=== PATIENT | male | born 1965 | race Caucasian/White ===

== ENCOUNTER 2020-03-10 05:14 | Emergency (ER) | payer OTHER ==
[~2020-03-10] VITALS: Ht 185.4 cm; Wt 72.6 kg
[2020-03-10] MEDS ORDERED: LIPITOR 20 MG T20 M1 PO (05:21)
[2020-03-10] MEDS ORDERED: CIPRO500 M1 PO (05:22)
[2020-03-10] MEDS ORDERED: GABAPENTIN100 MG PO (05:22)
[2020-03-10 05:51] LABS: URINE BILIRUBIN NEGATIVE (Negative); URINE BLOOD NEGATIVE (Negative); URINE CLARITY CLEAR; URINE COLOR YELLOW; URINE GLUCOSE-RANDOM* NEGATIVE (Negative); URINE KETONES NEGATIVE (Negative); URINE NITRITE-REFLEX NEGATIVE (Negative); URINE PROTEIN (DIPSTICK) NEGATIVE (Negative); URINE SPECIFIC GRAVITY <= 1.005 (1.005-1.035); URINE UROBILINOGEN 0.2 E.U./dl (0.2-1.0)
[2020-03-10 06:01] LABS: URINE LEUKOCYTES-REFLEX 1+ (Negative)
[2020-03-10 06:02] LABS: ABSOLUTE NEUTROPHILS 3.8 thou/uL (1.4-8.2); EOSINOPHILS 17.4 % (0.0-3.0); HEMOGLOBIN 12.8 gm/dL (14.0-18.0); LYMPHOCYTES 26.2 % (24.0-44.0); MCH 31.6 pg (26.0-34.0); MCHC 33.8 g/dL (28.0-37.0); MCV 93.6 fL (80.0-100.0); MONOCYTES 6.6 % (1.0-8.0); PLATELET COUNT 320 thou/uL (150-400); POLYS 48.8 % (36.0-66.0); RBC 4.06 mil/uL (4.50-6.00); RDW 13.9 % (10.5-14.5); WBC 7.8 thou/uL (4.0-11.0)
[2020-03-10 06:57] LABS: SQUAMOUS 0-3 Few /LPF (0-3)
[2020-03-10 07:00] LABS: BACTERIA-REFLEX None Seen /HPF (None Seen); CASTS None Seen /LPF (None Seen); CRYSTALS None Seen /LPF (None Seen); URINE RBC None Seen /HPF (0-2); URINE WBC-REFLEX 0-5 Rare /HPF (0-5)
[2020-03-10 07:07] LABS: CALCIUM 8.7 mg/dL (8.5-10.1); POTASSIUM 3.8 mmol/L (3.5-5.1)
[2020-03-10 07:13] LABS: ALBUMIN 3.5 g/dL (3.4-5.0); TOTAL BILIRUBIN 0.2 mg/dL (0.2-1.0); TOTAL PROTEIN 7.3 g/dL (6.4-8.2)
[2020-03-10 07:30] VITALS: BP 103/68
== END 2020-03-10 07:32 | disposition home or self-care (01) ==
LOC: ER 05:14
PROVIDERS: Student in an Organized Health Care Education/Training Program
DX: N39.0 Urinary tract infection, site not specified (principal); M54.6 Pain in thoracic spine; E78.00 Pure hypercholesterolemia, unspecified; F12.90 Cannabis use, unspecified, uncomplicated; Z88.2 Allergy status to sulfonamides; Z79.899 Other long term (current) drug therapy

== ENCOUNTER → 2020-03-20 | Outpatient (CLI) | payer OTHER ==
[~2020-03-20] MED LIST: CIPRO500 M1 PO; GABAPENTIN100 MG PO; LIPITOR 20 MG T20 M1 PO
== END ==
LOC: HYPER 09:01
PROVIDERS: ATTEND Emergency Medicine Emergency Medical Services
DX: L89.150 Pressure ulcer of sacral region, unstageable (principal); L84 Corns and callosities; G90.09 Other idiopathic peripheral autonomic neuropathy; R63.4 Abnormal weight loss; E78.5 Hyperlipidemia, unspecified; F12.90 Cannabis use, unspecified, uncomplicated; F32.9 Major depressive disorder, single episode, unspecified; Z87.891 Personal history of nicotine dependence

== ENCOUNTER → 2020-04-13 | Outpatient (CLI) | payer OTHER | LOC: MRI 14:01 | PROVIDERS: ATTEND Nurse Practitioner | DX: M51.24 Other intervertebral disc displacement, thoracic region (principal); M51.87 Other intervertebral disc disorders, lumbosacral region; N13.30 Unspecified hydronephrosis; N13.4 Hydroureter; D64.9 Anemia, unspecified ==

== ENCOUNTER → 2021-10-25 | Outpatient (CLI) | payer OTHER, MEDICARE | LOC: ULTRA 10:18 | PROVIDERS: ATTEND Nurse Practitioner | DX: M79.605 Pain in left leg (principal) ==